=== PATIENT | female | born 1955 | race Caucasian/White ===

== ENCOUNTER 2016-10-15 11:12 | Observation (INO) | payer OTHER ==
[~2016-10-15] VITALS: Ht 162.6 cm; Wt 70.0 kg
[2016-10-15 11:15] VITALS: BP 123/66; PULSE 82; RESP 16; TEMP 98.1; O2SAT 93
--- NOTE | 2016-10-15 11:44 | PD ---
HPI Chief Complaint: Altered Mental Status Time Seen by Provider: 11:44 Travel History International Travel<30 days: No Contact w/Intl Traveler<30days: No Traveled to known affect area: No History of Present Illness HPI 61-year-old female with a history of transient global amnesia, hypothyroidism, anxiety, depression presents to the emergency department with her son for evaluation of confusion and memory loss for 4 days. The patient admits that she has had similar episodes to this in the past, was diagnosed with transient global amnesia earlier this year. The patient's son states that she has had these intermittent episodes the past 2 years but they typically last about one hour to 1 day. States that this is the longest that her confusion is her lasted which made him concerned and wanted her to come in for evaluation. Patient's son states that the patient's symptoms are triggered by anxiety and stress. States that she is here visiting for the winter from [place], arrived 5 days ago. Patient's son states he believes she has been stressed out due to the holidays. The patient denies any fever, chills, nausea, vomiting, lightheadedness, dizziness, headache, chest pain, shortness of breath, abdominal pain, cough or cold symptoms, dysuria, burning with urination. No other complaints. PFSH Past Medical History Anxiety: Yes Depression: Yes Neurologic: Yes (Transient Global Amnesia) Thyroid Disease: Yes (hypothyroidism) ?: Not Social History Alcohol Use: No Tobacco Use: No Substance Use: No Allergies-Medications (Allergen,Severity, Reaction): Coded Allergies: Penicillin (Verified Allergy, Unknown, 10/15/16) Reported Meds & Prescriptions Reported Meds & Active Scripts Active Reported [Estradiol Prog Cmpd] 1 Applic TOP TID Fenofibrate 48 Mg Tab 48 Mg PO DAILY Levothyroxine (Levothyroxine Sodium) 75 Mcg Tab 75 Mcg PO DAILY Alendronate (Alendronate Sodium) 35 Mg Tab 35 Mg PO WEEKLY ON SUNDAYS Celexa (Citalopram Hydrobromide) 40 Mg Tab 60 Mg PO DAILY Review of Systems Except as stated in HPI: all other systems reviewed are Neg Physical Exam Narrative GENERAL: Well-nourished and well-developed pleasant female patient in no acute distress. SKIN: Warm and dry. HEAD: Normocephalic and atraumatic. EYES: No injection, drainage, or hyphema noted. PERRLA. EOMI. ENT: No nasal drainage noted. Oropharynx is clear. NECK: Supple and the trachea is midline. CARDIOVASCULAR: Regular rate and rhythm. RESPIRATORY: Breath sounds are equal bilaterally with no accessory muscle use, wheezing, rhonchi, or crackles. GASTROINTESTINAL: Abdomen is soft, non-tender, and nondistended. MUSCULOSKELETAL: No obvious deformities, swelling, cyanosis, or ecchymosis is present throughout the upper and lower extremities. Patient has full range of motion without any signs of neurovascular compromise. Strength 5/5 upper and lower extremities equal bilaterally. NEUROLOGICAL: Awake, alert, and oriented person and situation. Unsure of place or time. Normal speech and gait. Normal finger to nose test. Normal rapid alternating movements. Normal [id number] test. Cranial nerves are grossly intact. Data Data Last Documented VS Vital Signs Date Time Temp Pulse Resp B/P Pulse Ox O2 Delivery O2 Flow Rate FiO2 10/15/16 11:47 81 18 95 Room Air 10/15/16 11:47 98.7 132/62 Orders Electrocardiogram (10/15/16 11:42) Complete Blood Count With Diff (10/15/16 11:42) Comprehensive Metabolic Panel (10/15/16 11:42) Drug Screen, Random Urine (10/15/16 11:42) Troponin I (10/15/16 11:42) Thyroid Stimulating Hormone (10/15/16 11:42) Urinalysis - C+S If Indicated (10/15/16 11:42) Chest, Single Ap (10/15/16 11:42) Ct Brain W/O Iv Contrast(Rout) (10/15/16 11:42) Ecg Monitoring (10/15/16 11:42) Iv Access Insert/Monitor (10/15/16 11:42) Oximetry (10/15/16 11:42) Sodium Chloride 0.9% Flush (Ns Flush) (10/15/16 11:45) Urine Culture (10/15/16 12:00) Labs Laboratory Tests Test 10/15/16 12:00 White Blood Count 6.0 TH/MM3 Red Blood Count 4.36 MIL/MM3 Hemoglobin 13.0 GM/DL Hematocrit 39.6 % Mean Corpuscular Volume 90.7 FL Mean Corpuscular Hemoglobin 29.9 PG Mean Corpuscular Hemoglobin 32.9 % Concent Red Cell Distribution Width 13.0 % Platelet Count 241 TH/MM3 Mean Platelet Volume 7.9 FL Neutrophils (%) (Auto) 81.3 % Lymphocytes (%) (Auto) 9.1 % Monocytes (%) (Auto) 9.2 % Eosinophils (%) (Auto) 0.2 % Basophils (%) (Auto) 0.2 % Neutrophils # (Auto) 4.9 TH/MM3 Lymphocytes # (Auto) 0.5 TH/MM3 Monocytes # (Auto) 0.6 TH/MM3 Eosinophils # (Auto) 0.0 TH/MM3 Basophils # (Auto) 0.0 TH/MM3 CBC Comment DIFF FINAL Differential Comment Urine Color YELLOW Urine Turbidity HAZY Urine pH 7.0 Urine Specific [place] 1.013 Urine Protein NEG mg/dL Urine Glucose (UA) NEG mg/dL Urine Ketones NEG mg/dL Urine Occult Blood NEG Urine Nitrite NEG Urine Bilirubin NEG Urine Urobilinogen LESS THAN 2.0 MG/DL Urine Leukocyte Esterase NEG Urine RBC 1 /hpf Urine WBC 1 /hpf Urine Squamous Epithelial 3 /hpf Cells Urine Amorphous Sediment RARE Urine Bacteria RARE /hpf Urine Mucus FEW /lpf Microscopic Urinalysis Comment CATH-CULTURE IND Sodium Level 137 MEQ/L Potassium Level 3.7 MEQ/L Chloride Level 104 MEQ/L Carbon Dioxide Level 24.6 MEQ/L Anion Gap 8 MEQ/L Blood Urea Nitrogen 14 MG/DL Creatinine 1.10 MG/DL Estimat Glomerular Filtration 50 ML/MIN Rate Random Glucose 102 MG/DL Calcium Level 8.8 MG/DL Total Bilirubin 0.2 MG/DL Aspartate Amino Transf 24 U/L (AST/SGOT) Alanine Aminotransferase 18 U/L (ALT/SGPT) Alkaline Phosphatase 57 U/L Troponin I LESS THAN 0.02 NG/ML Total Protein 7.2 GM/DL Albumin 3.9 GM/DL Thyroid Stimulating Hormone 2.170 uIU/ML 3rd Gen Urine Opiates Screen NEG Urine Barbiturates Screen NEG Urine Amphetamines Screen NEG Urine Benzodiazepines Screen NEG Urine Cocaine Screen NEG Urine Cannabinoids Screen NEG MDM Medical Decision Making Medical Screen Exam Complete: Yes Emergency Medical Condition: Yes Differential Diagnosis Transient global amnesia versus CVA versus TIA versus intracranial hemorrhage versus UTI versus electrolyte abnormality Narrative Course 61-year-old female with a history of transient global amnesia presents to the emergency department for confusion for 4 days. Patient is afebrile, vital signs are stable. Physical examination is unremarkable. No focal neurologic deficits. IV access is obtained, labs have been drawn and sent. Head CT has been ordered and is pending. The patient has had similar episodes to this in the past but her symptoms have not lasted longer than 1 day previously. Therefore we will evaluate for further causes of altered mental status. CBC is unremarkable. CMP shows mild renal insufficiency but otherwise unremarkable, no prior labs for comparison. Troponin is less than 0.02. TSH is within normal limits. Urine tox is negative. Urinalysis shows rare bacteria and few bacteria. Chest x-ray is unremarkable. Head CT is unremarkable. Patient has remained stable and without complaint while here in the emergency department. She does continue to have confusion. Discussed all results with son and patient. They agree to stay in 23 hour observation for neurology consultation and MRI. I discussed the case with my attending physician Dr. Martini who is aware of the patients history, physical examination findings, and treatment plan. Physician Communication Physician Communication I spoke with Dr. Alston medical clinic manager who agrees to admit the patient to their service. Diagnosis Primary Impression: Altered mental status Qualified Code: R40.4 - Transient alteration of awareness Admitting Information Admitting Physician Requests: Observation Tahira Noriega Oct 15, 2016 11:44
[2016-10-15] MEDS ORDERED: SODIUM CHLORIDE 0.9% FLUSH 5 ML FLUSH IVF PRN (11:45)
[2016-10-15 11:47] VITALS: BP 132/62; PULSE 77; RESP 18; TEMP 98.7; O2SAT 95
[2016-10-15 12:21] LABS: AUTOMATED NEUTROPHIL # 4.9 TH/MM3 (1.8-7.7); BASOPHIL % 0.2 % (0.0-2.0); EOSINOPHIL % 0.2 % (0.0-4.0); HEMATOCRIT 39.6 % (35.0-46.0); HEMO FLAGS DIFF FINAL; LYMPH % 9.1 % (9.0-44.0); LYMPHOCYTE # 0.5 TH/MM3 (1.0-4.8); MEAN CELL VOLUME 90.7 FL (80.0-100.0); MEAN CORPUSCULAR HEMOGLOBIN 29.9 PG (27.0-34.0); MEAN CORPUSCULAR HGB CONC 32.9 % (32.0-36.0); MONO % 9.2 % (0.0-8.0); NEUT % 81.3 % (16.0-70.0); PLATELET COUNT 241 TH/MM3 (150-450); RED BLOOD COUNT 4.36 MIL/MM3 (4.00-5.30)
[2016-10-15 12:30] LABS: ANION GAP 8 MEQ/L (5-15); AST (GOT) 24 U/L (15-37); BICARBONATE 24.6 MEQ/L (21.0-32.0); BLOOD UREA NITROGEN 14 MG/DL (7-18); CHLORIDE 104 MEQ/L (98-107); GLOMERULAR FILTRATION RATE 50 ML/MIN (>89); POTASSIUM 3.7 MEQ/L (3.5-5.1); SODIUM (NA) 137 MEQ/L (136-145)
[2016-10-15 12:31] LABS: BACTERIA, URINE RARE /hpf; BLOOD, URINE NEG (NEG); GLUCOSE,URINE NEG (NEG); KETONE, URINE NEG (NEG); MUCUS URINE FEW /lpf (OCC); NITRITE,URINE NEG (NEG); SQUAMOUS EPITHELIAL CELL URINE 3 /hpf (0-5); URINE COLOR YELLOW (YELLW/STRAW)
[2016-10-15 12:32] LABS: AMPHETAMINE, URINE NEG (NEG); BARBITURATES, URINE NEG (NEG); COCAINE, URINE NEG (NEG)
[2016-10-15 12:35] LABS: COMMENT (UR) CATH-CULTURE IND; CULTURE IF INDICATED CATH CULTURE IND
[2016-10-15 12:41] LABS: ALKALINE PHOSPHATASE 57 U/L (45-117); ALT (GPT) 18 U/L (10-53); TOTAL BILIRUBIN ADULT 0.2 MG/DL (0.2-1.0)
--- NOTE | 2016-10-15 12:41 | RADRPT ---
EXAM DATE/TIME: 10/15/2016 12:27 [facility] COMPARISON: No previous studies available for comparison. INDICATIONS : Increased confusion for 4 days. RADIATION DOSE: 35.62 CTDIvol (mGy) MEDICAL HISTORY : Cerebrovascular disease. Hypothyroidism. SURGICAL HISTORY : None. ENCOUNTER: Initial ACUITY: 4 - 6 days PAIN SCALE: 0/10 LOCATION: cranial TECHNIQUE: Multiple contiguous axial images were obtained of the head. Using automated exposure control and adj ustment of the mA and/or kV according to patient size, radiation dose was kept as low as reasonably a chievable to obtain optimal diagnostic quality images. FINDINGS: CEREBRUM: The ventricles are normal for age. No evidence of midline shift, mass lesion, hemorrhage or acute in farction. No extra-axial fluid collections are seen. POSTERIOR FOSSA: The cerebellum and brainstem are intact. The 4th ventricle is midline. The cerebellopontine angle i s unremarkable. EXTRACRANIAL: The visualized portion of the orbits is intact. SKULL: The calvaria is intact. No evidence of skull fracture. CONCLUSION: Normal examination. Artur Eden MD on October 15, 2016 at 12:39 Board Certified Radiologist. This report was verified electronically.
--- NOTE | 2016-10-15 12:45 | RADRPT ---
EXAM DATE/TIME: 10/15/2016 12:33 [facility] COMPARISON: No previous studies available for comparison. INDICATIONS : Altered mental status MEDICAL HISTORY : None. SURGICAL HISTORY : None. ENCOUNTER: Initial ACUITY: 1 day PAIN SCORE: 0/10 LOCATION: chest FINDINGS: A single view of the chest demonstrates the lungs to be symmetrically aerated without evidence of mas s, infiltrate or effusion. The cardiomediastinal contours are unremarkable. Osseous structures are intact. CONCLUSION: No acute disease. Artur Eden MD on October 15, 2016 at 12:44 Board Certified Radiologist. This report was verified electronically.
[2016-10-15] MEDS ORDERED: FENO48TA PO (13:12)
[2016-10-15] MEDS ORDERED: LEVO75TA3 PO (13:12)
[2016-10-15] MEDS ORDERED: [UNRECOGNIZED DRUG - OTHER] TOP (13:12)
[2016-10-15] MEDS ORDERED: CELE40TA PO (13:12)
[2016-10-15] MEDS ORDERED: ALEN35TA24 PO (13:12)
--- NOTE | 2016-10-15 15:58 | HHI.HP ---
[facility] Service Family Medicine Primary Care Physician Non-Staff Admission Diagnosis Altered Mental Status Diagnoses: International Travel<30 Days: No Contact w/Intl Traveler<30days: No Known Affected Area: No History of Present Illness History obtained from patient, friend, and son jointly 61 year old female with past history of hypothyroidism presenting with a 1 1/2 year history of transient episodes of short term memory loss. She has had 3 such episodes in this time frame. This most recent episode prompted concern because it lasted 3-4 days. Normally the episodes last only for an hour or so. However over the last 4 days she has had difficulty remembering recent events. For example her son and his friend visited her a couple days ago and the day after she didn't remember the visit. 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 She has remained fully functional during these episodes. No behavioral disturbances or agitation, no SI/HI, no AVH. No history of psychiatric illness or hospitalization. No paresthesias, no focal weakness, no headache, no CP/SOB. She lives in [place] for most of the year and has been worked up for this issue by doctors up there. Work up has included blood tests and an MRI. She has never had imaging of her neurovasculature that she recalls. No EEG that she knows of. (Toni Dowell MD R1) Review of Systems Constitutional: DENIES: Fever, Chills Endocrine: DENIES: Heat/cold intolerance Eyes: DENIES: Blurred vision, Diplopia, Vision loss Ears, nose, mouth, throat: DENIES: Hearing loss Respiratory: DENIES: Cough, Wheezing, Shortness of breath Cardiovascular: DENIES: Chest pain, Palpitations Gastrointestinal: DENIES: Abdominal pain, Constipation, Diarrhea, Nausea, Vomiting Musculoskeletal: DENIES: Joint pain Integumentary: DENIES: Rash Neurologic: DENIES: Abnormal gait, Headache, Localized weakness, Paresthesias, Seizures, Speech Problems, Tremor, Poor Balance Psychiatric: COMPLAINS OF: Confusion, DENIES: Anxiety, Mood changes, Depression (Treated, not currently depressed), Hallucinations, Agitation, Suicidal Ideation, Homicidal Ideation, Delusions (Toni Dowell MD R1) Past Family Social History Past Medical History Hypothyroidism Depression "Transient global amnesia" Past Surgical History Chin tuck surgery years ago Reported Medications Reported Meds & Active Scripts Active Reported [Estradiol Prog Cmpd] 1 Applic TOP TID Fenofibrate 48 Mg Tab 48 Mg PO DAILY Levothyroxine (Levothyroxine Sodium) 75 Mcg Tab 75 Mcg PO DAILY Alendronate (Alendronate Sodium) 35 Mg Tab 35 Mg PO WEEKLY ON SUNDAYS Celexa (Citalopram Hydrobromide) 40 Mg Tab 60 Mg PO DAILY (Toni Dowell MD R1) Allergies: Coded Allergies: Penicillin (Verified Allergy, Unknown, 10/15/16) Active Ordered Medications Current Medications Medications (Trade) Dose Ordered Sig/Abby Route Start Time Stop Time Status Last Admin (NS Flush) 2 ml UNSCH PRN IVF 10/15/16 11:45 (CeleXA) 60 mg DAILY PO 10/16/16 09:00 UNV (Tricor) 48 mg DAILY PO 10/16/16 09:00 UNV Levothyroxine Sodium 75 mcg 75 mcg DAILY PO 10/16/16 09:00 UNV (Rocephin Inj/NS Inj) 100 ml @ 200 mls/hr Q24H IV 10/15/16 16:00 UNV Family History Both parents lived to [facility] and healthy, mother still living with some early dementia Social History Tob - never smoker Alc - 1-2 drinks every 5-7 days Drugs - denies use Living - Divides time between [place] and [place]. Has a daughter and son in both places, respectively. for 8-9 years. (Toni Dowell MD R1) Physical Exam Vital Signs Vital Signs Date Time Temp Pulse Resp B/P Pulse Ox O2 Delivery O2 Flow Rate FiO2 10/15/16 11:47 81 18 95 Room Air 10/15/16 11:47 98.7 77 18 132/62 95 Room Air 10/15/16 11:15 98.1 82 16 123/66 93 Room Air Physical Exam GENERAL: WDWN adult white female, pleasant, sitting up in bed in no acute distress SKIN: No rashes, ecchymoses or lesions. Cool and dry. HEAD: NC/AT EYES: PERRL. EOMI. No conjunctival injection or drainage. ENT: MMM, OP without erythema, tonsillar swelling, or exudate. NECK: Supple, no lymphadenopathy. No meningeal signs. CARDIOVASCULAR: NRRR. Normal S1/S2. No MRG RESPIRATORY: CTAB. No crackles or wheezes. GASTROINTESTINAL: Abdomen soft, non-distended, non-tender. No hepato- splenomegaly or palpable masses. MUSCULOSKELETAL: Extremities without clubbing, cyanosis, or edema. NEUROLOGICAL: Awake and alert, oriented x3. Cranial nerves II through XII intact to specific testing. Strength 5/5 in all major muscle groups. Sensation grossly normal through all dermatomes. Coordination intact to [id number] and emmf-cv-[id number]. Repetition and naming intact. Fund of knowledge normal except mildly impaired memory of current events (knew a constitution party was about to become president, didn't know it was Wade Hutchinson). Normal speech. Cognitive testing normal by clock draw. Romberg negative. PSYCHIATRIC: Normal mood and pleasant affect. Well kempt appearance. Thought process linear and goal directed. Thought content normal. No SI/HI, no AVH. Denies cintia or depression. Laboratory Laboratory Tests Test 10/15/16 12:00 White Blood Count 6.0 Red Blood Count 4.36 Hemoglobin 13.0 Hematocrit 39.6 Mean Corpuscular Volume 90.7 Mean Corpuscular Hemoglobin 29.9 Mean Corpuscular Hemoglobin 32.9 Concent Red Cell Distribution Width 13.0 Platelet Count 241 Mean Platelet Volume 7.9 Neutrophils (%) (Auto) 81.3 Lymphocytes (%) (Auto) 9.1 Monocytes (%) (Auto) 9.2 Eosinophils (%) (Auto) 0.2 Basophils (%) (Auto) 0.2 Neutrophils # (Auto) 4.9 Lymphocytes # (Auto) 0.5 Monocytes # (Auto) 0.6 Eosinophils # (Auto) 0.0 Basophils # (Auto) 0.0 CBC Comment DIFF FINAL Differential Comment Urine Color YELLOW Urine Turbidity HAZY Urine pH 7.0 Urine Specific [place] 1.013 Urine Protein NEG Urine Glucose (UA) NEG Urine Ketones NEG Urine Occult Blood NEG Urine Nitrite NEG Urine Bilirubin NEG Urine Urobilinogen LESS THAN 2.0 Urine Leukocyte Esterase NEG Urine RBC 1 Urine WBC 1 Urine Squamous Epithelial 3 Cells Urine Amorphous Sediment RARE Urine Bacteria RARE Urine Mucus FEW Microscopic Urinalysis Comment CATH-CULTURE IND Sodium Level 137 Potassium Level 3.7 Chloride Level 104 Carbon Dioxide Level 24.6 Anion Gap 8 Blood Urea Nitrogen 14 Creatinine 1.10 Estimat Glomerular Filtration 50 Rate Random Glucose 102 Calcium Level 8.8 Total Bilirubin 0.2 Aspartate Amino Transf 24 (AST/SGOT) Alanine Aminotransferase 18 (ALT/SGPT) Alkaline Phosphatase 57 Troponin I LESS THAN 0.02 Total Protein 7.2 Albumin 3.9 Thyroid Stimulating Hormone 2.170 3rd Gen Urine Opiates Screen NEG Urine Barbiturates Screen NEG Urine Amphetamines Screen NEG Urine Benzodiazepines Screen NEG Urine Cocaine Screen NEG Urine Cannabinoids Screen NEG Date/Time Procedure Status Source Growth 10/15/16 12:00 Urine Culture Received Urine Catheterized Urine Pending (Toni Dowell MD R1) Result Diagram: 10/15/16 1200 10/15/16 1200 Imaging Last Impressions Head CT 10/15/16 1142 Signed Impressions: Service Date/Time: Saturday, October 15, 2016 12:27 - CONCLUSION: Normal examination. Artur Eden MD Chest X-Ray 10/15/16 1142 Signed Impressions: Service Date/Time: Saturday, October 15, 2016 12:33 - CONCLUSION: No acute disease. Artur Eden MD (Toni Dowell MD R1) Assessment and Plan Assessment and Plan 61 year old female with PMH of hypothyroid and existing diagnosis of "Transient global amnesia" presenting with: Code Status Full code Discussed Condition With Dr. Calin Rod (Toni Dowell MD R1) Problem List: (1) Short-term memory loss Status: Acute Plan: Has been worked up in past including MRI. Relatively infrequent episodes at present, could represent exaggerated normal aging. Cognition intact to clock draw, unlikely to be early dementia. CXR showing no acute process Head CT wnl * Spoke with Dr. Layton who will follow up with patient in clinic * Dr. Layton recommended CTA brain and carotid to r/o stenosis, EEG to r/o seizure activity; if results abnormal will place formal consult * Neuro checks Q4H * Treat UTI as below which could possibly contribute to picture * CM to assist with insurance and neurology follow-up (2) UTI (urinary tract infection) Status: Acute Plan: Asymptomatic, UA with bacteria by cathed sample, no nitrites or leuk esterase * Levaquin 250 mg PO x3 days (3) Hypothyroidism Status: Acute Plan: TSH wnl * Continue home Synthroid (4) Depression Status: Acute Plan: Stable, continue home Celexa (5) FEN/PPX Status: Acute Plan: Fluids: None at the moment Elecs: monitor and replete PRN Nutrition: Diet regular basic DVT: SQH 5000 units Q8H (Toni Dowell MD R1) Problem Qualifiers (1) UTI (urinary tract infection): Qualified Code: N30.00 - Acute cystitis without hematuria Toni Dowell MD R1 Oct 15, 2016 15:58 Radha Sanders MD Oct 16, 2016 15:53
[2016-10-15] MEDS ORDERED: cefTRIAXone INJ 1,000 MG in SODIUM CHLORIDE 0.9% INJ 100 ML IV SCH (16:00)
[2016-10-15] MEDS ORDERED: IOHEXOL 350 MG/ML 10 ML VIAL (for RAD DIAG) IV ONE (17:13)
--- NOTE | 2016-10-15 17:29 | RADRPT ---
EXAM DATE/TIME: 10/15/2016 16:08 [facility] COMPARISON: No previous studies available for comparison. INDICATIONS : Increase confusion for the last four days. IV CONTRAST: 70 cc Omnipaque 350 (iohexol) IV ; Cumulative dose for multiple exams. RADIATION DOSE: 14.10 CTDIvol (mGy) ; Combined studies MEDICAL HISTORY : Hypothyroidism. global transient amnesia SURGICAL HISTORY : None. ENCOUNTER: Initial ACUITY: 4 - 6 days PAIN SCALE: 0/10 LOCATION: Cta brain TECHNIQUE: Volumetric scanning was performed using a multi-row detector CT scanner. The data was post processed with a variety of visualization algorithms including full volume maximum intensity projection, multi -planar sliding thin slab reformation, curved planar reformation, and surface rendering techniques. Using automated exposure control and adjustment of the mA and/or kV according to patient size, radiat ion dose was kept as low as reasonably achievable to obtain optimal diagnostic quality images. FINDINGS: There is excellent visualization of the major intracranial arteries out to the second-order branch ve ssels. There is no evidence for aneurysm, vessel truncation or stenosis, and no evidence for vascula r malformation. CONCLUSION: Normal examination. Artur Eden MD on October 15, 2016 at 17:25 Board Certified Radiologist. This report was verified electronically.
[2016-10-15 17:46] VITALS: BP 135/66; PULSE 70; RESP 16; TEMP 98.8; O2SAT 97
[2016-10-15] MEDS ORDERED: NITROFURANTOIN MONOHYD MACROCR 100 MG CAP PO SCH (18:00)
--- NOTE | 2016-10-15 18:12 | RADRPT ---
EXAM DATE/TIME: 10/15/2016 16:08 [facility] COMPARISON: No previous studies available for comparison. INDICATIONS : Increase confusion for the last four days. IV CONTRAST: 70 cc Omnipaque 350 (iohexol) IV ; Cumulative dose for multiple exams. RADIATION DOSE: 14.10 CTDIvol (mGy) ; Combined studies MEDICAL HISTORY : Hypothyroidism. Global transient amnesia SURGICAL HISTORY : None. ENCOUNTER: Initial ACUITY: 4 - 6 days PAIN SCALE: 0/10 LOCATION: neck CTA TECHNIQUE: Volumetric scanning was performed using a multirow detector CT scanner. The data was post processed with a variety of visualization algorithms including full-volume maximum intensity projection, multip lanar sliding thin-slab reformation, curved-planar reformation, and surface-rendering techniques. Us ing automated exposure control and adjustment of the mA and/or kV according to patient size, radiatio n dose was kept as low as reasonably achievable to obtain optimal diagnostic quality images. FINDINGS: AORTIC ARCH: The left vertebral artery arises directly from the aortic arch as a variant of normal. The arch vesse ls are widely patent. RIGHT CAROTID: The common carotid artery is intact. The carotid bulb has a normal configuration without ulceration o r narrowing. The internal carotid artery lumen is smooth without stenosis. The external carotid wilemr ry is intact. LEFT CAROTID: The common carotid artery is intact. The carotid bulb has a normal configuration without ulceration or narrowing. The internal carotid artery lumen is smooth without stenosis. The external carotid ar sarika is intact. VERTEBRALS: Patent bilaterally, right side dominant. Left arises from the aortic arch CONCLUSION: No evidence of carotid stenosis. Artur Eden MD on October 15, 2016 at 18:09 Board Certified Radiologist. This report was verified electronically.
[2016-10-15 21:18] VITALS: BP 135/72; PULSE 72; RESP 20; TEMP 99.2; O2SAT 96
[2016-10-16 00:01] VITALS: BP 107/59; PULSE 72; RESP 20; TEMP 99.2; O2SAT 95
[2016-10-16] MEDS: HEPARIN SODIUM - SQ 10,000 UNITS/ML VIAL SQ SCH ×2 (00:15→05:16)
[2016-10-16 04:02] VITALS: BP 106/57; PULSE 72; RESP 20; TEMP 97.6; O2SAT 97
[2016-10-16] MEDS ORDERED: LEVOTHYROXINE SODIUM 75 MCG TAB PO SCH (06:00)
[2016-10-16 07:46] LABS: BASOPHIL % 0.4 % (0.0-2.0); EOSINOPHIL % 1.2 % (0.0-4.0); HEMATOCRIT 38.6 % (35.0-46.0); HEMO FLAGS DIFF FINAL; LYMPH % 15.9 % (9.0-44.0); LYMPHOCYTE # 0.7 TH/MM3 (1.0-4.8); MEAN CELL VOLUME 90.2 FL (80.0-100.0); MEAN CORPUSCULAR HGB CONC 33.3 % (32.0-36.0); NEUT % 71.5 % (16.0-70.0); PLATELET COUNT 223 TH/MM3 (150-450); RED BLOOD COUNT 4.29 MIL/MM3 (4.00-5.30); RED CELL DISTRIBUTION WIDTH 13.2 % (11.6-17.2); WHITE BLOOD COUNT 4.2 TH/MM3 (4.0-11.0)
[2016-10-16 08:00] VITALS: BP 121/62; PULSE 71; RESP 18; TEMP 99.3; O2SAT 95
--- NOTE | 2016-10-16 08:12 | HHI.FPPN ---
Subjective Subjective Patient seen and examined with the resident team. Case reviewed and discussed Please refer to resident H&P for further details regarding HPI, ROS, PMH, SurgHx , FH and SocHx In summary, patient is a pleasant 61yoF with a diagnosis of transient global amnesia brought in by family after 4 days of short term memory loss worse than prior. She has had a prior neurologic work-up but has not established with a local neurologist. Neurology was contacted on patient's admission and recommended CTA neck, brain and EEG Patient is seen this am and reports back to her baseline. Feels like a film has been lifted from in front of her face and things are clear now. No headaches Hospital Objective Objective Last Impressions Head CT 10/15/16 1142 Signed Impressions: Service Date/Time: Saturday, October 15, 2016 12:27 - CONCLUSION: Normal examination. Artur Eden MD Chest X-Ray 10/15/16 1142 Signed Impressions: Service Date/Time: Saturday, October 15, 2016 12:33 - CONCLUSION: No acute disease. Artur Eden MD Neck CTA 10/15/16 0000 Signed Impressions: Service Date/Time: Saturday, October 15, 2016 16:08 - CONCLUSION: No evidence of carotid stenosis. Artur Eden MD Head CTA 10/15/16 0000 Signed Impressions: Service Date/Time: Saturday, October 15, 2016 16:08 - CONCLUSION: Normal examination. Artur Eden MD Laboratory Tests - Abnormals Test 10/15/16 10/16/16 12:00 06:15 Neutrophils (%) (Auto) 81.3 % 71.5 % Monocytes (%) (Auto) 9.2 % 11.0 % Lymphocytes # (Auto) 0.5 TH/MM3 0.7 TH/MM3 Urine Turbidity HAZY Urine Bacteria RARE /hpf Urine Mucus FEW /lpf Creatinine 1.10 MG/DL Estimat Glomerular Filtration 50 ML/MIN Rate Troponin I LESS THAN 0.02 NG/ML Vitamin B12 Level 177 PG/ML Vital Signs 10/15/16 10/15/16 10/15/16 10/15/16 11:15 11:47 11:47 17:46 Temp 98.1 98.7 98.8 Pulse 82 77 81 70 Resp 16 18 18 16 B/P 123/66 132/62 135/66 Pulse Ox 93 95 95 97 O2 Delivery Room Air Room Air Room Air Room Air 10/15/16 10/16/16 10/16/16 21:18 00:01 04:02 Temp 99.2 99.2 97.6 Pulse 72 72 72 Resp 20 20 20 B/P 135/72 107/59 106/57 Pulse Ox 96 95 97 Physical exam GENERAL: WDWN female, sitting up in bed SKIN: Warm and dry. No rashes HEAD: Normocephalic. AT EYES: No scleral icterus. No injection or drainage. ENT: OP clear. MMM NECK: Supple, trachea midline. No JVD or lymphadenopathy. CARDIOVASCULAR: Regular rate and rhythm without audible murmurs, gallops, or rubs. RESPIRATORY: Breath sounds equal and clear to auscultation bilaterally. No accessory muscle use. GASTROINTESTINAL: Abdomen soft, non-tender, nondistended. Normal active BS MUSCULOSKELETAL: No cyanosis, or edema. No calf tenderness BACK: Nontender without obvious deformity. No CVA tenderness. NEURO: Awake and alert. Oriented x 4. Normal speech and gait. CN grossly intact. Motor and sensory intact and equal bilaterally. Cognitive testing normal. Assessment Assessment 61yoF admitted with: AMS, short-term memory loss Hypothyroidism Depression "Transient global amnesia" per patient and family report PLAN PLAN Neurochecks EEG pending CTA normal and discussed with patient and family Neurology follow-up as outpatient with Dr. Layton who is aware Resume home meds as appropriate Patient seen and examined. Case reviewed and discussed Agree with plan of care as discussed with me and documented in the resident note. Radha Sanders MD Oct 16, 2016 08:12
[2016-10-16 08:13] LABS: BICARBONATE 25.4 MEQ/L (21.0-32.0); POTASSIUM 3.4 MEQ/L (3.5-5.1)
[2016-10-16] MEDS ORDERED: CITALOPRAM HYDROBROMIDE 20 MG TAB PO SCH (09:00)
[2016-10-16] MEDS ORDERED: FENOFIBRATE 48 MG TAB PO SCH (09:00)
--- NOTE | 2016-10-16 09:07 | MG ---
cc: LOUIS AYALA M.D. Lab No: 17-17 Date: 10/16/2016 Age: Sex: F Race: REFERRING DOCTOR Dr. Dowell. TECHNIQUE This is 17 channel EEG. DESCRIPTION: The background rhythm reveals a symmetrical alpha rhythm, frequency is 8-10 Hz, amplitude 20-30 microvolts with the expected anterior decrement to the response. Eye movement artifact is seen and also there is some element of muscle artifact present. Photic stimulation is done and does produce a fairly well-developed symmetrical driving response. I do not see any epileptiform discharges present. Hyperventilation was performed with good effort with no change in the background rhythm. No lateralizing features are identified. INTERPRETATION This is a normal EEG. MD TALIA Hall/TLL /8:56 AM /9:00 AM
--- NOTE | 2016-10-16 09:53 | HHI.DCPOC ---
Discharge Care Plan Diagnosis: (1) Short-term memory loss (2) UTI (urinary tract infection) Goals to Promote Your Health * To prevent worsening of your condition and complications * To maintain your health at the optimal level Directions to Meet Your Goals Take your medications as prescribed Follow your dietary instruction Follow activity as directed Keep your appointments as scheduled Take your immunizations and boosters as scheduled If your symptoms worsen call your PCP, if no PCP go to Urgent Care Center or Emergency Room Smoking is Dangerous to Your Health. Avoid second hand smoke Call the 24-hour hour crisis hotline for domestic abuse at Toni Dowell MD R1 Oct 16, 2016 09:53 Radha Sanders MD Oct 16, 2016 15:53
[2016-10-16] MEDS ORDERED: LEVO250T3 PO (09:55)
[2016-10-16] MEDS ORDERED: LEVOFLOXACIN 250 MG TAB PO SCH (17:00)
== END 2016-10-16 14:11 | disposition home or self-care (01) ==
LOC: NEPC 11:12 → NEDA 13:20 → NEPGCP 18:28
PROVIDERS: ADMIT Family Medicine; ATTEND Family Medicine
DX: G45.4 Transient global amnesia (principal); N30.00 Acute cystitis without hematuria; F41.9 Anxiety disorder, unspecified; F32.9 Major depressive disorder, single episode, unspecified; E03.9 Hypothyroidism, unspecified; N28.9 Disorder of kidney and ureter, unspecified
CPT/HCPCS: 70450; 70496; 70498; 71010; 80048; 80053; 80307; 81001; 82607; 83735; 84443; 84484; 85025; 87086; 95819; 99285; G0378; J1644; Q9967